=== PATIENT | female | born 1975 | race American Indian/Alaskan Native ===

== ENCOUNTER 2017-09-23 20:23 | Emergency (ER) | payer SELFPAY | END 2017-09-23 21:43 | disposition left against medical advice (07) | LOC: ED 20:23 | DX: Z53.21 Procedure and treatment not carried out due to patient leaving prior to being seen by health care provider (principal) ==

== ENCOUNTER 2020-08-12 01:08 | Emergency (ER) | payer SELFPAY ==
[2020-08-12 02:08] VITALS: BP 140/101
--- NOTE | 2020-08-12 02:16 | Emergency Department Report ---
HPI - General Chief Complaint: Abdominal Pain Time Seen by Provider: 08/12/20 01:59 - HPI HPI: 45-year-old female presents to the emergency department with complaint of some abdominal pain after eating half of a sheet of paper from a book and then developing abdominal pain. The patient also thinks that there is something crawling around in her stomach. Patient says that she has a habit of eating paper that she says she does when she gets nervous. The patient is listed as having a history of bipolar disorder and schizophrenia but she denies this d iagnosis. She denies any suicidal or homicidal ideations. She denies any fever, nausea, vomiting, diarrhea, constipation, dysuria, vaginal bleeding or discharge. ED Past Medical Hx - Past Medical History Previous Medical History?: Yes Hx Psychiatric Treatment: Yes (bipolar, schizophrenia) - Surgical History Past Surgical History?: No - Social History Smoking Status: Current Every Day Smoker Substance Use Type: None - Medications Home Medications: Home Medications Medication Instructions Recorded Confirmed Last Taken Type No Known Home Medications [No 04/29/16 04/29/16 Unknown History Reported Home Medications] ED Review of Systems ROS: Stated complaint: INGESTION OF PAPER Other details as noted in HPI Comment: All other systems reviewed and negative Constitutional: denies: chills, fever Eyes: denies: eye pain, vision change ENT: denies: ear pain, throat pain Respiratory: denies: cough, shortness of breath Cardiovascular: denies: chest pain, palpitations Gastrointestinal: abdominal pain. denies: vomiting Genitourinary: denies: dysuria, discharge Musculoskeletal: denies: back pain, arthralgia Skin: denies: rash, lesions Neurological: denies: headache, weakness Physical Exam - Physical Exam Vital Signs: Vital Signs 08/12/20 08/12/20 08/12/20 01:34 01:58 02:00 Temperature 98.2 F Pulse Rate 86 Respiratory 18 Rate Blood Pressure 143/107 140/101 O2 Sat by Pulse 99 98 99 Oximetry Physical Exam: GENERAL: The patient is well-developed well-nourished. HENT: Normocephalic. Atraumatic. Patient has moist mucous membranes. EYES: Extraocular motions are intact. NECK: Supple. Trachea is midline. CHEST/LUNGS: Clear to auscultation. There is no respiratory distress noted. HEART/CARDIOVASCULAR: Regular. There is no tachycardia. ABDOMEN: Abdomen is soft. Mild generalized abdominal tenderness to palpation. No guarding. Patient has normal bowel sounds. SKIN: Skin is warm and dry. NEURO: The patient is awake, alert, and oriented. The patient is cooperative. Normal speech. MUSCULOSKELETAL: There is no tenderness or deformity. ED Course Vital Signs 08/12/20 08/12/20 08/12/20 01:34 01:58 02:00 Temperature 98.2 F Pulse Rate 86 Respiratory 18 Rate Blood Pressure 143/107 140/101 O2 Sat by Pulse 99 98 99 Oximetry ED Medical Decision Making - Lab Data Result diagrams: 08/12/20 01:57 08/12/20 01:57 - Radiology Data Radiology results: image reviewed interpreted by me: Abdominal x-ray shows nonspecific nonobstructive bowel gas. - Medical Decision Making This patient presents with a complaint of abdominal pain after allegedly eating a half sheet of paper from a book. The patient appears to have a history of bipolar disorder and schizophrenia. Apparently eating paper is a common occurrence for this patient. Labs have been unremarkable including CBC, metabolic panel and the patient is not . Abdominal x-ray shows nonspecific nonobstructive bowel gas. Prior to being able to go over all of the results with the patient, the patient eloped from the emergency department. While eating paper is not necessarily normal behavior, the patient otherwise has not displayed any behaviors consistent with acute psychosis or requiring involuntary inpatient stabilization. She is oriented to person, place, time. She has been calm and appropriate. She denies any suicidal homicidal ideations. Critical Care Time: No Critical care attestation.: If time is entered above; I have spent that time in minutes in the direct care of this critically ill patient, excluding procedure time. ED Disposition Clinical Impression: Abdominal pain Qualifiers: Abdominal location: generalized Qualified Code(s): R10.84 - Generalized abdominal pain Disposition: ELOPED Is pt being admited?: No Condition: Stable Time of Disposition: 04:16
[2020-08-12 02:33] LABS: Basophils # (Auto) 0.1 K/mm3 (0.0-0.1); Basophils % (Auto) 1.2 % (0.0-1.8); Eosinophils # (Auto) 0.2 K/mm3 (0.0-0.4); Hematocrit 34.1 % (30.3-42.9); Hemoglobin 11.1 gm/dl (10.1-14.3); Lymphocytes # (Auto) 1.1 K/mm3 (1.2-5.4); Lymphocytes % (Auto) 24.9 % (13.4-35.0); Mean Corpuscular HGB Conc 33 % (30-34); Mean Corpuscular Volume 74 fl (79-97); Monocytes # (Auto) 0.6 K/mm3 (0.0-0.8); Monocytes % (Auto) 14.5 % (0.0-7.3); Platelet Count 299 K/mm3 (140-440)
[2020-08-12 03:25] LABS: Alanine Aminotransferase 5 units/L (7-56); BUN/Creatinine Ratio 7; Blood Urea Nitrogen 6 mg/dL (7-17); Calcium 9.2 mg/dL (8.4-10.2); Hemolysis Index 3
--- NOTE | 2020-08-12 03:44 | XRay Report ---
ABDOMEN 2 VIEW(S) INDICATION / CLINICAL INFORMATION: Abd pain. COMPARISON: None available. FINDINGS: TUBES / LINES: None. BOWEL GAS PATTERN: No significant abnormality. ADDITIONAL FINDINGS: No significant additional findings. IMPRESSION: No significant abnormality. Signer Name: Esteban Beard MD Signed: 08/12/2020 3:40 AM Workstation Name: [id number]
== END 2020-08-12 04:15 | disposition left against medical advice (07) ==
LOC: ED 01:08
DX: Z53.21 Procedure and treatment not carried out due to patient leaving prior to being seen by health care provider (principal)
CPT/HCPCS: 36415; 74019; 80053; 84703; 85025